=== PATIENT | female | born 1970 | race Caucasian/White ===

== ENCOUNTER 2018-07-26 09:21 | Inpatient (IN) | END 2018-07-27 16:50 | disposition home or self-care (01) | DRG 581 ==

== ENCOUNTER 2018-12-15 06:20 | Day surgery (SDC) | payer BC ==
[2018-12-14 10:42] VITALS: Ht 160 cm; Wt 50.0 kg
[~2018-12-15] VITALS: Ht 160 cm; Wt 50.0 kg
[2018-12-15] VITALS (14 sets, daily range): BP systolic 123–157; BP diastolic 57–74; PULSE 64–88; RESP 11–35
[~2018-12-15 06:20] MED LIST: HYDR-4011 PO; TAMO20TA PO
[2018-12-15] MEDS ORDERED: POLYMYXIN/BACITRACIN 1L IRRIG ONE (06:57)
[2018-12-15] MEDS ORDERED: GENTAMICIN 80 MG INJ ONE (06:57)
--- NOTE | 2018-12-15 07:25 | HPN ---
Date/Time of Note Date/Time of Note DATE: 12/15/18 TIME: 07:24 Interval H&P Admission Note Pt. seen H&P reviewed: No system changes JIM PRIETO MD Dec 15, 2018 07:25
[2018-12-15] MEDS ORDERED: hydrALAzine 20 MG INJ IV PRN (07:30)
[2018-12-15] MEDS ORDERED: ACETAMINOPHEN 325 MG TAB PO PRN (07:30)
[2018-12-15] MEDS ORDERED: IPRATROPIUM (NEB) 0.5 MG/2.5 ML AMP HHN PRN (07:30)
[2018-12-15] MEDS ORDERED: LABETALOL HCL 20MG INJ IV PRN (07:30)
[2018-12-15] MEDS ORDERED: ONDANSETRON 4 MG INJ IV PRN ×2 (07:30)
[2018-12-15] MEDS ORDERED: morphine 2 MG INJ IV PRN (07:30)
[2018-12-15] MEDS ORDERED: MIDAZOLAM 1 MG/ML 2 ML INJ IV PRN (07:30)
[2018-12-15] MEDS ORDERED: OXYCODONE/ACETAMINOPHEN (5/325) TAB PO PRN ×2 (07:30)
[2018-12-15] MEDS ORDERED: FENTAnyl 50 MCG/ML VIAL IV PRN ×3 (07:30)
[2018-12-15] MEDS ORDERED: MEPERIDINE 25 MG INJ IV PRN (07:30)
[2018-12-15] MEDS ORDERED: HYDROmorphONE 1 MG/5 ML IV SYRINGE IV PRN ×3 (07:30)
[2018-12-15] MEDS ORDERED: ALBUTEROL 0.083% (NEB) 2.5 MG/3 ML AMP HHN PRN (07:30)
[2018-12-15] MEDS ORDERED: EPHEDrine SULFATE 50 MG/5 ML SYG IV PRN (07:30)
[2018-12-15] MEDS ORDERED: TRIMETHOBENZAMIDE 100 MG/ML VIAL IM PRN (07:30)
[2018-12-15] MEDS ORDERED: HYDROCODONE/APAP (5/325) TAB PO PRN (07:30)
[2018-12-15] MEDS ORDERED: BUPIVACAINE LIPOSOME/PF 266 MG/20 ML VIAL INFIL SCH (07:30)
[2018-12-15] MEDS ORDERED: DIPHENHYDRAMINE 50 MG INJ IV PRN (07:30)
--- NOTE | 2018-12-15 07:31 | PREAC ---
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 not on B-Henry Active Scripts Hydrocodone/Acetaminophen (Batchelor 5-325 Tablet) 1 Each Tablet, 1 EACH PO Q4 PRN for PAIN, #20 TAB Prov:LIAM APPIAH 07/27/18 Reported Medications Tamoxifen Citrate (Tamoxifen Citrate) 20 Mg Tablet, 20 MG PO DAILY, TAB 12/14/18 Current Medications Bupivacaine Liposome (Exparel 266 Mg/ 20 ml Vial) 266 mg INTRA-OP INFIL ; Start 12/15/18 at 07:30; Stop 12/15/18 at 07:31 Acetaminophen/ Hydrocodone Bitart (Batchelor (5/325)) 1 tab Q4H PRN PO .PAIN 1-3; Start 12/15/18 at 07:30; Status UNV Morphine Sulfate (morphine) 2 mg ONCE PRN IV .SEVERE PAIN 7-10; Start 12/15/18 at 07:30; Status UNV Ondansetron HCl (Zofran Inj) 4 mg Q6H PRN IV NAUSEA/VOMITING; Start 12/15/18 at 07:30; Status UNV Acetaminophen (Tylenol Tab) 325 mg Q4H PRN PO MILD PAIN(1-3)OR ELEVATED TEMP; Start 12/15/18 at 07:30; Status UNV Meds reviewed: Yes Allergies Coded Allergies: No Known Drug Allergies (Verified Allergy, Mild, 12/14/18) Allergies Reviewed: Yes Labs/Studies Labs Reviewed: Reviewed by anesthesiologist test: Negative Pre-procedure Exam Last vitals Vital Signs Date Temp Pulse Resp B/P (MAP) Pulse Ox O2 O2 Flow FiO2 Time Delivery Rate 12/15/18 98.4 86 16 123/63 99 Room Air 07:07 (83) Airway: Adequate mouth opening, Adequate thyromental dist Mallampati: Mallampati II Teeth: Normal Lung: Normal Heart: Normal ASA Physical Status ASA physical status: 1 Emergency: None Planned Anesthetic General/MAC: ETT Planned Pain Management Parenteral pain med Pre-operative Attestations Prior to commencing anesthesia and surgery, the patient was re-evaluated, there was verification of: *The patient's identity *The results of appropriate recent lab work and preoperative vital signs *The above evaluation not changing prior to induction *Anesthetic plan, risk benefits, alternative and complications discussed with patient/family; questions answered; patient/family understands, accepts and wishes to proceed. Arnulfo Guerra M.D. Dec 15, 2018 07:31
--- NOTE | 2018-12-15 07:32 | OPR ---
Date/Time of Note Date/Time of Note DATE: 12/15/18 TIME: 07:27 Operative Report Free Text/Dictation Plastic Surgery Operative Report Preoperative diagnosis: history of right breast CA Postoperative diagnosis: same Procedure: right breast tissue vp software support reconstruction Surgeon: bryan Dial.: PONCHO mtz Anesthesia: gen EBL:min IV fluids: per flow sheet Findings:n/a Complications: none Dispo:home Indications for procedure: 48 yo patient presents for tissue vp software support breast reconstruction. The risks, benefits, and alternatives of performing this procedure were discussed with the patient including the risks of bleeding, infection, wound healing problems, vp software support extrusion, pain and tightness, need for removal. We discussed that if radiation is involved, it may alter the outcome. The risk of asymmetry and need for revision surgery were also discussed. The patient states that she understands these risks and would like to proceed with the procedure. All questions were answered, no guarantees were given with regards the outcome of this procedure. Description of procedure: The patient was brought to the operating room at [facility] where general anesthesia was induced, and the patient was prepped and draped in the usual sterile fashion. First, a total of 5 cc of local anesthetic solution containing 0.5% marcaine with 1:200,000 epi were injected into the planned incision site in the prior mastectomy scar in the right breast Next, the 10 blade was used to incise through the scar, and then electrocautery was used to dissect down to the pectoralis muscle. The mastectomy flaps were re-elevated off of the underlying pectoralis muscle until adequate elevation and visualization have been achieved. Next, electrocautery was used to make a longitudinal incision in the pectoralis muscle, and the subpectoral space was entered with electrocautery. A pocket was then created in the subpectoral plane. Dissection proceeded medially, superiorly, and laterally, and then inferiorly. Once the inferior most point of the dissection had been achieved, dissection turned superiorly, and the inferior portion of the pectoralis muscle was released and the subcutaneous plane was entered. Once the pocket had completely been created, the base width was then measured and was found to be approximately 13cm. Therefore, a Sientra 13cm low profile tissue vp software support was opened, rinsed in antibiotic irrigation, the air was evacuated, and then gloves were changed and this was inserted into the breast. Next, a total of 100 cc of sterile saline was injected into the vp software support. The pectoralis muscle was then closed with 2-0 Vicryl suture. An additional round of hemostasis and irrigation was carried out. 30 cc of a dilute exparel solution was injected around the breast, and 1 x 15 Salvatore drains were inserted through a stab incision in the axilla and were secured in place with 2-0 nylon suture. The breast was then closed with 3-0 Vicryl suture and 4-0 Monocryl suture and was dressed with Dermabond, Tegaderm, and an ABD. 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
[2018-12-15] MEDS ORDERED: PROPOFOL 20 ML ONE (07:34)
[2018-12-15] MEDS ORDERED: GLYCOPYRROLATE 0.4 MG INJ ONE (07:34)
[2018-12-15] MEDS ORDERED: CEFAZOLIN 1 GM INJ ONE (07:34)
[2018-12-15] MEDS ORDERED: NEOSTIGMINE 3 MG/3 ML SYRINGE ONE (07:34)
[2018-12-15] MEDS ORDERED: ROCURONIUM 50 MG INJ ONE (07:34)
[2018-12-15] MEDS ORDERED: ONDANSETRON 4 MG INJ ONE (07:35)
[2018-12-15] MEDS ORDERED: FENTAnyl 50 MCG/ML VIAL ONE (07:35)
[2018-12-15] MEDS ORDERED: MIDAZOLAM 1 MG/ML 2 ML INJ ONE (07:35)
[2018-12-15] MEDS ORDERED: DEXAMETHASONE 4 MG/ML 5 ML INJ ONE (07:35)
[2018-12-15] MEDS ORDERED: BUPIVACAINE 0.5%/EPI (SDV) 30 ML INJ ONE (07:39)
[2018-12-15] MEDS ORDERED: SODIUM CL BACTERIOSTATIC 30 ML INJ ONE (07:39)
--- NOTE | 2018-12-15 09:14 | PAC ---
Date/Time of Note Date/Time of Note DATE: 12/15/18 TIME: 09:14 Post-Anesthesia Notes Post-Anesthesia Note Last documented vital signs Vital Signs Date Temp Pulse Resp B/P (MAP) Pulse Ox O2 O2 Flow FiO2 Time Delivery Rate 12/15/18 98.4 86 16 123/63 99 Room Air 07:07 (83) Activity: WNL Respiratory function: WNL Cardiovascular function: WNL Mental status: Baseline Pain reasonably controlled: Yes Hydration appropriate: Yes Nausea/Vomiting absent: Yes Arnulfo Guerra M.D. Dec 15, 2018 09:14
== END 2018-12-15 12:11 | disposition home or self-care (01) ==
LOC: SDS 06:20 → EDSTATUS 07:30 → SDS 12:11
PROVIDERS: ATTEND Surgery Plastic and Reconstructive Surgery
DX: Z90.11 Acquired absence of right breast and nipple (principal); Z85.3 Personal history of malignant neoplasm of breast
CPT/HCPCS: 19357; 88304; C9290; J0690; J1100; J1170; J1200; J1580; J2250; J2405; J3010; Z7512; Z7610; J2710